=== PATIENT | female | born 2000 | race American Indian/Alaskan Native ===

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

== ENCOUNTER 2018-04-13 22:09 | Emergency (ER) | payer SELFPAY ==
[2018-04-14] MEDS ORDERED: DELTASONE PO ONE (00:04)
[2018-04-14] MEDS ORDERED: IBUPROFEN PO ONE (00:04)
--- NOTE | 2018-04-14 00:10 | Emergency Department Report ---
ED General Adult HPI - General Chief complaint: Dyspnea/Respdistress Stated complaint: CHEST PAIN DIZZINESS Time Seen by Provider: 04/13/18 23:58 Source: patient Mode of arrival: Ambulatory Limitations: No Limitations - History of Present Illness Initial comments: Ping is a 17-year-old female with history of mild intermittent asthma who presents with shortness of breath chest tightness. She works as a dining room cashier. She felt hot and flushed as if she is getting overheated. She then used her inhaler which did improved her symptoms. She felt as if she couldn't get a breath in. She drove to the ED. She has nasal congestion. She felt the same symptoms when she had the flu. -: Gradual, This evening Location: chest Severity scale (0 -10): 7 Quality: burning, aching Consistency: intermittent Worsens with: other (cough) Associated Symptoms: malaise, other (nasal congestion) - Related Data Previous Rx's Medication Instructions Recorded Last Taken Type Ibuprofen [Motrin] 600 mg PO Q8H PRN #20 tablet 07/13/17 Unknown Rx methOCARBAMOL [Robaxin TAB] 500 mg PO Q6H PRN #15 tablet 07/13/17 Unknown Rx traMADol [Ultram] 50 mg PO Q6HR PRN #10 tablet 07/13/17 Unknown Rx Cetirizine HCl [ZyrTEC] 10 mg PO DAILY 7 Days #7 capsule 04/14/18 Unknown Rx predniSONE [Deltasone] 3 tab PO QDAY 3 Days #9 tab 04/14/18 Unknown Rx Allergies Allergy/AdvReac Type Severity Reaction Status Date / Time acetaminophen Allergy Rash Verified 07/13/17 14:59 [From Tylenol-Codeine] codeine Allergy Rash Verified 07/13/17 14:59 [From Tylenol-Codeine] ED Review of Systems ROS: Stated complaint: CHEST PAIN DIZZINESS Other details as noted in HPI Comment: All other systems reviewed and negative Constitutional: malaise. denies: fever ENT: congestion Respiratory: cough, shortness of breath, wheezing ED Past Medical Hx - Past Medical History Previous Medical History?: Yes Hx Asthma: Yes Additional medical history: ECZEMA - Social History Smoking Status: Never Smoker Substance Use Type: None - Medications Home Medications: Home Medications Medication Instructions Recorded Confirmed Last Taken Type Ibuprofen [Motrin] 600 mg PO Q8H PRN #20 tablet 07/13/17 Unknown Rx methOCARBAMOL [Robaxin TAB] 500 mg PO Q6H PRN #15 tablet 07/13/17 Unknown Rx traMADol [Ultram] 50 mg PO Q6HR PRN #10 tablet 07/13/17 Unknown Rx Cetirizine HCl [ZyrTEC] 10 mg PO DAILY 7 Days #7 capsule 04/14/18 Unknown Rx predniSONE [Deltasone] 3 tab PO QDAY 3 Days #9 tab 04/14/18 Unknown Rx ED Physical Exam - General Limitations: No Limitations General appearance: alert, in no apparent distress - Head Head exam: Present: atraumatic, normocephalic - Eye Eye exam: Present: normal appearance - ENT ENT exam: Present: mucous membranes moist - Neck Neck exam: Present: normal inspection, full ROM. Absent: tenderness - Respiratory Respiratory exam: Present: normal lung sounds bilaterally. Absent: respiratory distress, wheezes, rales, rhonchi - Cardiovascular Cardiovascular Exam: Present: regular rate, normal rhythm. Absent: systolic murmur, diastolic murmur, rubs, gallop - GI/Abdominal GI/Abdominal exam: Present: soft, normal bowel sounds. Absent: distended, tenderness, guarding, rebound - Extremities Exam Extremities exam: Present: normal inspection - Back Exam Back exam: Present: normal inspection - Neurological Exam Neurological exam: Present: alert, oriented X3 - Psychiatric Psychiatric exam: Present: normal affect, normal mood - Skin Skin exam: Present: warm, dry, intact, normal color. Absent: rash ED Course Vital Signs 04/13/18 22:16 Temperature 98.7 F Pulse Rate 95 H Respiratory 18 Rate Blood Pressure 139/92 [Right] O2 Sat by Pulse 97 Oximetry ED Medical Decision Making - Medical Decision Making Acute asthma exacerbation triggered by URI. No indication of pulmonary embolism or pneumonia or pneumothorax PERC negative heart rate 68 beats a minute respiratory rate 11 pulse ox 100% on room air Prescribed prednisone and Zyrtec. Critical care attestation.: If time is entered above; I have spent that time in minutes in the direct care of this critically ill patient, excluding procedure time. ED Disposition Clinical Impression: Asthma exacerbation Disposition: DC-01 TO HOME OR SELFCARE Is pt being admited?: No Does the pt Need Aspirin: No Condition: Stable Instructions: Asthma (ED) Prescriptions: Cetirizine HCl [ZyrTEC] 10 mg PO DAILY 7 Days #7 capsule predniSONE [Deltasone] 3 tab PO QDAY 3 Days #9 tab Referrals: YOLANDA CLARK DO [Primary Care Provider] - 3-5 Days Forms: Work/School Release Form(ED)
[2018-04-14 00:14] VITALS: BP 123/80
== END 2018-04-14 00:51 | disposition home or self-care (01) ==
LOC: ED 22:09
DX: J45.901 Unspecified asthma with (acute) exacerbation (principal)
CPT/HCPCS: 93005; 93010; 99282; J7512

== ENCOUNTER 2018-08-25 10:50 | Emergency (ER) | payer OTHER ==
[2018-08-25 11:11] VITALS: BP 129/77
--- NOTE | 2018-08-25 11:11 | Event Note ---
ED Screening Note ED Screening Note: CO DYSURIA LMP 2 W AGO NO DC G0 PMH ASTHMA PSH NONE RX NONE VSS NO FEVER This initial assessment/diagnostic orders/clinical plan/treatment(s) is/are subject to change based on patients health status, clinical progression and re- assessment by fellow clinical providers in the ED. Further treatment and workup at subsequent clinical providers discretion. Patient/guardian urged not to elope from the ED as their condition may be serious if not clinically assessed and managed. Initial orders include:
[2018-08-25 11:24] LABS: Bilirubin,Urine NEG (Negative); Blood,Urine SM (Negative); Color,Urine Yellow (Yellow); Mucus,Urine FEW /HPF; Urobilinogen,Urine < 2.0 mg/dL (<2.0)
--- NOTE | 2018-08-25 11:25 | Emergency Department Report ---
ED Female HPI - General Chief complaint: Abdominal Pain Stated complaint: ABDOMINAL PAIN Time Seen by Provider: 08/25/18 11:00 Source: patient Mode of arrival: Ambulatory Limitations: No Limitations - History of Present Illness MD Complaint: dysuria, pelvic pain -: week(s) (1) Quality: dull Associated Symptoms: dysuria - Related Data Previous Rx's Medication Instructions Recorded Last Taken Type Ibuprofen [Motrin] 600 mg PO Q8H PRN #20 tablet 07/13/17 Unknown Rx methOCARBAMOL [Robaxin TAB] 500 mg PO Q6H PRN #15 tablet 07/13/17 Unknown Rx traMADol [Ultram] 50 mg PO Q6HR PRN #10 tablet 07/13/17 Unknown Rx ALBUTEROL Inhaler(NF) [VENTOLIN 2 puff IH Q6HR PRN #1 inha 04/14/18 Unknown Rx Inhaler(NF)] Cetirizine HCl [ZyrTEC] 10 mg PO DAILY 7 Days #7 capsule 04/14/18 Unknown Rx predniSONE [Deltasone] 3 tab PO QDAY 3 Days #9 tab 04/14/18 Unknown Rx Allergies Allergy/AdvReac Type Severity Reaction Status Date / Time acetaminophen Allergy Rash Verified 07/13/17 14:59 [From Tylenol-Codeine] codeine Allergy Rash Verified 07/13/17 14:59 [From Tylenol-Codeine] ED Review of Systems ROS: Stated complaint: ABDOMINAL PAIN Other details as noted in HPI Comment: All other systems reviewed and negative Constitutional: denies: chills, fever Respiratory: denies: cough, shortness of breath, SOB with exertion Cardiovascular: denies: chest pain, palpitations Gastrointestinal: abdominal pain Genitourinary: urgency, dysuria, frequency ED Past Medical Hx - Past Medical History Previous Medical History?: Yes Hx Asthma: Yes Additional medical history: ECZEMA - Surgical History Past Surgical History?: No - Social History Smoking Status: Never Smoker Substance Use Type: None - Medications Home Medications: Home Medications Medication Instructions Recorded Confirmed Last Taken Type Ibuprofen [Motrin] 600 mg PO Q8H PRN #20 tablet 07/13/17 Unknown Rx methOCARBAMOL [Robaxin TAB] 500 mg PO Q6H PRN #15 tablet 07/13/17 Unknown Rx traMADol [Ultram] 50 mg PO Q6HR PRN #10 tablet 07/13/17 Unknown Rx ALBUTEROL Inhaler(NF) [VENTOLIN 2 puff IH Q6HR PRN #1 inha 04/14/18 Unknown Rx Inhaler(NF)] Cetirizine HCl [ZyrTEC] 10 mg PO DAILY 7 Days #7 capsule 04/14/18 Unknown Rx predniSONE [Deltasone] 3 tab PO QDAY 3 Days #9 tab 04/14/18 Unknown Rx ED Physical Exam - General Limitations: No Limitations General appearance: alert, in no apparent distress - Head Head exam: Present: atraumatic, normocephalic, normal inspection - Eye Eye exam: Present: normal appearance, PERRL - ENT ENT exam: Present: normal exam, normal orophraynx, mucous membranes moist - Neck Neck exam: Present: normal inspection, full ROM. Absent: tenderness, meningismus, lymphadenopathy, thyromegaly - Respiratory Respiratory exam: Present: normal lung sounds bilaterally - Cardiovascular Cardiovascular Exam: Present: regular rate, normal rhythm, normal heart sounds - GI/Abdominal GI/Abdominal exam: Present: soft, normal bowel sounds. Absent: distended, tenderness, guarding, rebound, rigid, organomegaly, mass, bruit, pulsatile mass, hernia - Extremities Exam Extremities exam: Present: normal inspection, full ROM, normal capillary refill - Back Exam Back exam: Present: normal inspection, full ROM. Absent: CVA tenderness (R), CVA tenderness (L), muscle spasm, paraspinal tenderness, vertebral tenderness - Neurological Exam Neurological exam: Present: alert, oriented X3, CN II-XII intact, normal gait - Psychiatric Psychiatric exam: Present: normal mood - Skin Skin exam: Present: warm, intact, normal color ED Course Vital Signs 08/25/18 11:09 Temperature 98.0 F Pulse Rate 85 Respiratory 16 Rate Blood Pressure 129/77 O2 Sat by Pulse 98 Oximetry Critical care attestation.: If time is entered above; I have spent that time in minutes in the direct care of this critically ill patient, excluding procedure time. ED Disposition Clinical Impression: UTI (urinary tract infection) Disposition: - TO HOME OR SELFCARE Is pt being admited?: No Condition: Stable Instructions: Abdominal Pain (ED), Urinary Tract Infection in Women (ED) Referrals: SOFIE CHONG MD [Primary Care Provider] - 3-5 Days
[2018-08-25 11:31] LABS: HCG Qualitative,Urine Negative (Negative)
== END 2018-08-25 11:53 | disposition home or self-care (01) ==
LOC: ED 10:50
DX: N39.0 Urinary tract infection, site not specified (principal); Z88.6 Allergy status to analgesic agent; Z88.4 Allergy status to anesthetic agent
CPT/HCPCS: 81001; 81025; 99283

== ENCOUNTER 2019-04-15 08:10 | Emergency (ER) | payer SELFPAY ==
[2019-04-15 08:17] VITALS: BP 142/88
[2019-04-15 08:39] LABS: Basophils % (Auto) 0.4 % (0.0-1.8); Eosinophils # (Auto) 0.3 K/mm3 (0.0-0.4); Eosinophils % (Auto) 2.8 % (0.0-4.3); Hematocrit 39.5 % (30.3-42.9); Hemoglobin 13.2 gm/dl (10.1-14.3); Lymphocytes # (Auto) 2.6 K/mm3 (1.2-5.4); Lymphocytes % (Auto) 23.7 % (13.4-35.0); Mean Corpuscular HGB Conc 33 % (30-34); Mean Corpuscular Volume 91 fl (79-97); Monocytes # (Auto) 0.8 K/mm3 (0.0-0.8); Monocytes % (Auto) 6.9 % (0.0-7.3); Platelet Count 192 K/mm3 (140-440); Red Blood Count 4.36 M/mm3 (3.65-5.03); Red Cell Distribution Width 12.9 % (13.2-15.2)
[2019-04-15 09:05] LABS: Alanine Aminotransferase 11 units/L (7-56); Albumin 3.9 g/dL (3.9-5); BUN/Creatinine Ratio 14; Blood Urea Nitrogen 7 mg/dL (7-17); Calcium 9.4 mg/dL (8.4-10.2); Hemolysis Index 10
--- NOTE | 2019-04-15 09:57 | Emergency Department Report ---
ED Abdominal Pain HPI - General Chief Complaint: Abdominal Pain Stated Complaint: URINATION PUGH/STOMACH PAIN Time Seen by Provider: 04/15/19 09:19 Source: patient Mode of arrival: Ambulatory Limitations: No Limitations - History of Present Illness Initial Comments: 18 yo F w/ suprapubic pain x 1 week. She also reports urinary frequency and back pain. Denies fever, N/V, vag discharge, vag bleeding. MD Complaint: abdominal pain -: week(s) (1) Location: suprapubic Radiation: none Migration to: no migration Severity: mild Quality: sharp Consistency: intermittent Improves With: nothing Worsens With: other (urination) Associated Symptoms: dysuria. denies: nausea, vomiting, fever - Related Data Previous Rx's Medication Instructions Recorded Last Taken Type Ibuprofen [Motrin] 600 mg PO Q8H PRN #20 tablet 07/13/17 Unknown Rx methOCARBAMOL [Robaxin TAB] 500 mg PO Q6H PRN #15 tablet 07/13/17 Unknown Rx traMADoL [Ultram] 50 mg PO Q6HR PRN #10 tablet 07/13/17 Unknown Rx ALBUTEROL Inhaler(NF) [VENTOLIN 2 puff IH Q6HR PRN #1 inha 04/14/18 Unknown Rx Inhaler(NF)] Cetirizine HCl [ZyrTEC] 10 mg PO DAILY 7 Days #7 capsule 04/14/18 Unknown Rx predniSONE [Deltasone] 3 tab PO QDAY 3 Days #9 tab 04/14/18 Unknown Rx Ciprofloxacin HCl [Ciprofloxacin 500 mg PO Q12HR #14 tab 08/25/18 Unknown Rx TAB] Naproxen [Naprosyn] 500 mg PO BID #20 tablet 04/15/19 Unknown Rx Sulfamethoxazole/Trimethoprim 1 each PO BID #6 tablet 04/15/19 Unknown Rx [Bactrim DS TAB] Allergies Allergy/AdvReac Type Severity Reaction Status Date / Time acetaminophen Allergy Rash Verified 07/13/17 14:59 [From Tylenol-Codeine] codeine Allergy Rash Verified 07/13/17 14:59 [From Tylenol-Codeine] ED Review of Systems ROS: Stated complaint: URINATION PUGH/STOMACH PAIN Other details as noted in HPI Comment: All other systems reviewed and negative Constitutional: denies: chills, fever Gastrointestinal: abdominal pain. denies: nausea, vomiting Genitourinary: dysuria, frequency. denies: discharge ED Past Medical Hx - Past Medical History Previous Medical History?: Yes Hx Asthma: Yes Additional medical history: ECZEMA - Surgical History Past Surgical History?: No - Social History Smoking Status: Never Smoker Substance Use Type: None - Medications Home Medications: Home Medications Medication Instructions Recorded Confirmed Last Taken Type Ibuprofen [Motrin] 600 mg PO Q8H PRN #20 tablet 07/13/17 Unknown Rx methOCARBAMOL [Robaxin TAB] 500 mg PO Q6H PRN #15 tablet 07/13/17 Unknown Rx traMADoL [Ultram] 50 mg PO Q6HR PRN #10 tablet 07/13/17 Unknown Rx ALBUTEROL Inhaler(NF) [VENTOLIN 2 puff IH Q6HR PRN #1 inha 04/14/18 Unknown Rx Inhaler(NF)] Cetirizine HCl [ZyrTEC] 10 mg PO DAILY 7 Days #7 capsule 04/14/18 Unknown Rx predniSONE [Deltasone] 3 tab PO QDAY 3 Days #9 tab 04/14/18 Unknown Rx Ciprofloxacin HCl [Ciprofloxacin 500 mg PO Q12HR #14 tab 08/25/18 Unknown Rx TAB] Naproxen [Naprosyn] 500 mg PO BID #20 tablet 04/15/19 Unknown Rx Sulfamethoxazole/Trimethoprim 1 each PO BID #6 tablet 04/15/19 Unknown Rx [Bactrim DS TAB] ED Physical Exam - General Limitations: No Limitations General appearance: alert, in no apparent distress - Head Head exam: Present: atraumatic, normocephalic - Eye Eye exam: Present: normal appearance, EOMI - ENT ENT exam: Present: mucous membranes moist - Neck Neck exam: Present: normal inspection - Respiratory Respiratory exam: Present: normal lung sounds bilaterally. Absent: respiratory distress - Cardiovascular Cardiovascular Exam: Present: regular rate, normal rhythm - GI/Abdominal GI/Abdominal exam: Present: soft, tenderness (very mild suprapubic tenderness). Absent: distended - Extremities Exam Extremities exam: Present: normal inspection - Back Exam Back exam: Absent: CVA tenderness (R), CVA tenderness (L) - Neurological Exam Neurological exam: Present: alert, oriented X3 - Psychiatric Psychiatric exam: Present: normal affect, normal mood - Skin Skin exam: Present: warm, dry, intact, other (eczema present) ED Course Vital Signs 04/15/19 08:12 Temperature 97.8 F Pulse Rate 75 Respiratory 18 Rate Blood Pressure 142/88 O2 Sat by Pulse 100 Oximetry ED Medical Decision Making - Lab Data Result diagrams: 04/15/19 08:22 04/15/19 08:22 - Medical Decision Making 18 yo F with UTI on UA. No CVA tenderness on exam. Remainder of labs normal. Vital signs normal. Prescriptions given. Outpt f/u advised. Return precautions given. - Differential Diagnosis UTI Critical care attestation.: If time is entered above; I have spent that time in minutes in the direct care of this critically ill patient, excluding procedure time. ED Disposition Clinical Impression: UTI (urinary tract infection) Disposition: DC-01 TO HOME OR SELFCARE Is pt being admited?: No Condition: Stable Instructions: Urinary Tract Infection in Women (ED) Prescriptions: Sulfamethoxazole/Trimethoprim [Bactrim DS TAB] 1 each PO BID #6 tablet Naproxen [Naprosyn] 500 mg PO BID #20 tablet Referrals: PRIMARY CAREMD [Primary Care Provider] - 3-5 Days [facility] [Provider Group] - 3-5 Days Forms: Work/School Release Form(ED) Time of Disposition: 10:39
[2019-04-15 10:05] LABS: Amorphous Crystals,Urine 1+; Bacteria,Urine 1+ /HPF (Negative); Bilirubin,Urine NEG (Negative); Blood,Urine NEG (Negative); Color,Urine Yellow (Yellow); Mucus,Urine 3+ /HPF; Protein,Urine <15 mg/dL mg/dL (Negative); Urobilinogen,Urine < 2.0 mg/dL (<2.0)
== END 2019-04-15 11:07 | disposition home or self-care (01) ==
LOC: ED 08:10
DX: N39.0 Urinary tract infection, site not specified (principal); J45.909 Unspecified asthma, uncomplicated; Z79.899 Other long term (current) drug therapy; Z88.6 Allergy status to analgesic agent
CPT/HCPCS: 36415; 80053; 81001; 84703; 85025; 87086; 99283